=== PATIENT | male | born 1965 | race Caucasian/White ===

== ENCOUNTER 2017-03-05 15:06 | Observation (INO) | payer OTHER ==
[~2017-03-05 15:06] MED LIST: GEMF600T PO
[2017-03-05] MEDS ORDERED: SODIUM CHLORIDE 0.9% FLUSH 10 ML FLUSH IV FLUSH PRN (17:30)
[2017-03-05] MEDS ORDERED: ACETAMINOPHEN 500 MG CPLT PO PRN (17:30)
[2017-03-05] MEDS ORDERED: ONDANSETRON HCL 4 MG/2 ML VIAL IV PRN (17:30)
[2017-03-05 17:49] VITALS: BP 129/83; PULSE 80; RESP 18; TEMP 98; O2SAT 95
[2017-03-05] MEDS ORDERED: KETOROLAC TROMETHAMINE 30 MG/ML (IVP) VIAL IV PUSH ONE (18:15)
[2017-03-05 18:18] VITALS: PULSE 89
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
[2017-03-05 20:07] VITALS: BP 123/82; PULSE 94; RESP 18; TEMP 98; O2SAT 96
[2017-03-05] MEDS: SODIUM CHLORIDE 0.9% FLUSH 10 ML FLUSH IV FLUSH SCH (21:00)
[2017-03-05 22:11] LABS: CREATINE KINASE 224 U/L (39-308)
[2017-03-05 22:24] LABS: CKMB 3.9 NG/ML (0.5-3.6)
[2017-03-05 23:16] VITALS: BP 119/77; PULSE 86; RESP 18; TEMP 98.1; O2SAT 98
[2017-03-06] MEDS: NITROGLYCERIN 0.4 MG SL 25 TABS/BTL SL PRN ×2 (03:17→03:21)
[2017-03-06 05:55] LABS: CREATINE KINASE 197 U/L (39-308)
[2017-03-06 06:08] LABS: CKMB 3.9 NG/ML (0.5-3.6)
[2017-03-06] MEDS ORDERED: GEMFIBROZIL 600 MG TAB PO SCH (07:00)
[2017-03-06 07:57] VITALS: BP 111/75; PULSE 82; RESP 18; TEMP 98; O2SAT 94
[2017-03-06 08:00] VITALS: PULSE 93
[2017-03-06] MEDS: SODIUM CHLORIDE 0.9% FLUSH 10 ML FLUSH IV FLUSH SCH (08:51)
[2017-03-06] MEDS ORDERED: ASPIRIN 325 MG TAB PO SCH (09:00)
[2017-03-06 10:30] LABS: CREATINE KINASE 208 U/L (39-308)
[2017-03-06 10:56] LABS: CKMB 3.9 NG/ML (0.5-3.6)
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
--- NOTE | 2017-03-06 20:07 | TR ---
Date Performed: 03/06/2017 Time Performed: 10:00:59 DOCTOR: Sneha Gee DRUG LIST: CLINICAL HISTORY: REASON FOR TEST: Chest pain REASON FOR ENDING: OBSERVATION: CONCLUSION: Narendra protocol completed. Stopped sec to exceeding target heart rate and leg fatigue .Maximum EZ=421 Target HR Achieved=89.0% Maximum JS=639/88 Total Exercise Time=6:46. No reprod chest pain. Freq PVC at peak, occassional PAC during recovery. St lead V3 elevated prior to exam. No st seg ment changes to sugg ischemia. Good exercise tolerance. Normal bp reponse. Recovery quick and unremar kable. COMMENTS:
--- NOTE | 2017-03-06 20:39 | EKG ---
Date Performed: 03/05/2017 Time Performed: 17:45:27 PTAGE: 52 years EKG: ATRIAL FLUTTER/TACHYCARDIA INFERIOR MYOCARDIAL INFARCTION ABNORMAL ECG Since previous enio ng, no significant change noted NO PREVIOUS TRACING DOCTOR: Sneha Gee Interpretating Date/Time 03/06/2017 20:37:25
--- NOTE | 2017-03-06 20:41 | EKG ---
Date Performed: 03/05/2017 Time Performed: 20:12:35 PTAGE: 52 years EKG: Sinus rhythm INFERIOR MYOCARDIAL INFARCTION ABNORMAL ECG PREVIOUS TRACING : 03/05/2017 17.45 DOCTOR: Sneha Gee Interpretating Date/Time 03/06/2017 20:39:57
--- NOTE | 2017-03-06 20:43 | EKG ---
Date Performed: 03/06/2017 Time Performed: 05:34:00 PTAGE: 52 years EKG: Sinus rhythm INFERIOR MYOCARDIAL INFARCTION ABNORMAL ECG Since PREVIOUS TRACING , no significant change noted PREVIOUS TRACIN03/05/2017 20.12 DOCTOR: Sneha Gee Interpretating Date/Time 03/06/2017 20:41:33
== END 2017-03-06 12:30 | disposition home or self-care (01) ==
LOC: NEDDLT 15:06 → NEDA 17:21 → NEPGCP 17:25
DX: R07.89 Other chest pain (principal); E78.1 Pure hyperglyceridemia; E78.00 Pure hypercholesterolemia, unspecified; Z87.891 Personal history of nicotine dependence; R94.31 Abnormal electrocardiogram [ECG] [EKG]; I21.3 ST elevation (STEMI) myocardial infarction of unspecified site
CPT/HCPCS: 71010; 80048; 82550; 82552; 84484; 85025; 85610; 85730; 93005; 93017; 96374; 99285; G0378; J1885; 99281